=== PATIENT | female | born 1995 | race Caucasian/White ===

== ENCOUNTER 2022-09-26 20:25 | Emergency (ER) | payer SELFPAY ==
[2022-09-26 20:27] VITALS: BP 114/79; PULSE 80; RESP 18; TEMP 37.1; O2SAT 100; BMI 27.3
--- NOTE | 2022-09-26 21:12 | CT_ITS ---
PROCEDURE INFORMATION: Exam: CTA Right Upper Extremity With Contrast Exam date and time: 09/26/2022 10:40 PM Age: 26 years old Clinical indication: Pain; Upper arm; Right; Additional info: Pain, weakness, artery problem TECHNIQUE: Imaging protocol: Computed tomographic angiography of the right upper extremity with contrast, including non-contrast images if performed. 3D rendering (Not supervised by radiologist): MIP and/or 3D reconstructed images were created by the technologist. Radiation optimization: All CT scans at this facility use at least one of these dose optimization techniques: automated exposure control; mA and/or kV adjustment per patient size (includes targeted exams where dose is matched to clinical indication); or iterative reconstruction. Contrast material: ISOVUE; Contrast volume: 70 ml; Contrast route: INTRAVENOUS (IV); REPORTING DATA: Count of CT and Cardiac NM exams in prior 12 months: This patient has received 0 known CTs and 0 known cardiac nuclear medicine studies in the 12 months prior to the current study. COMPARISON: No relevant prior studies available. FINDINGS: Right subclavian artery: Not imaged. Axillary artery: No acute findings. No occlusion or significant stenosis. Brachial artery: No acute findings. No occlusion or significant stenosis. Radial artery: No acute findings. No occlusion or significant stenosis. Ulnar artery: No acute findings. No occlusion or significant stenosis. Bones/joints: Grossly unremarkable. Soft tissues: Unremarkable. IMPRESSION: Subclavian artery not imaged. Otherwise, visualized upper extremity arteries grossly unremarkable.
--- NOTE | 2022-09-26 21:12 | CT_ITS ---
PROCEDURE INFORMATION: Exam: CTA Chest With Contrast Exam date and time: 09/26/2022 10:47 PM Age: 26 years old Clinical indication: Pain; Chest pressure; Additional info: Rue pain, numbness, artery problem TECHNIQUE: Imaging protocol: Computed tomographic angiography of the chest with contrast. Exam focused on the arteries. 3D rendering (Not supervised by radiologist): MIP and/or 3D reconstructed images were created by the technologist. Total images: 318 Radiation optimization: All CT scans at this facility use at least one of these dose optimization techniques: automated exposure control; mA and/or kV adjustment per patient size (includes targeted exams where dose is matched to clinical indication); or iterative reconstruction. Contrast material: ISOVUE; Contrast volume: 70 ml; Contrast route: INTRAVENOUS (IV); REPORTING DATA: Count of CT and Cardiac NM exams in prior 12 months: This patient has received 0 known CTs and 0 known cardiac nuclear medicine studies in the 12 months prior to the current study. COMPARISON: CT ANGIO UE RT 09/26/2022 10:40 PM FINDINGS: Pulmonary arteries: Enlarged main pulmonary artery. Adequate contrast opacification of the pulmonary arteries. No acute pulmonary emboli. Great vessels off aortic arch: Great vessels enhance appropriately. Aorta: Cardiac pulsation artifact obscuring the aortic root and ascending aorta. No aneurysm or dissection. Thyroid: Mildly enlarged thyroid gland without discrete nodule or mass. Lungs: Trachea and main bronchi are patent. Bilateral dependent and bibasilar subsegmental atelectasis. No concerning airspace consolidation or pulmonary mass. No concerning lung nodules. Pleural spaces: Trace right pleural effusion. Heart: Normal heart size. No pericardial effusion. Mild limitations imposed by respiratory motion and cardiac pulsation artifact, particularly at the left lung base. Coronary arteries: No significant coronary artery calcification. Lymph nodes: No pathologically enlarged mediastinal or hilar lymph nodes. Intraperitoneal space: No acute process in the upper abdomen. Bones/joints: No acute osseous abnormality or concerning bone lesions. Soft tissues: Unremarkable. IMPRESSION: 1. No acute pulmonary emboli. 2. No aortic aneurysm or dissection. 3. Trace right pleural effusion. 4. Mild dependent and bibasilar subsegmental atelectasis
--- NOTE | 2022-09-26 21:13 | XR_ITS ---
FINAL REPORT CLINICAL HISTORY: RUE pain and weakness FINDINGS: SINGLE-VIEW CHEST The heart size is normal. The mediastinum is normal. There is mild atelectasis or scar in the left lung base. There is no pneumothorax. IMPRESSION: Left lung base atelectasis or scar. Reviewed, Interpreted and Dictated by Andrez Feliz III, MD Transcribed by Jaqueline Mcgovern Authenticated and [facility]
--- NOTE | 2022-09-26 21:15 | [facility].EDGENADL ---
Discharge Plan Disposition Patient Disposition: Home, Self-Care Chief Complaint: PAIN Referrals Follow up/Referrals: Provider,David, [Primary Care Provider] - See instructions Saul Friedman MD [Staff Physician] - See instructions Jack Willard PT [Physical Therapist] - See instructions Clinical Impressions Clinical Impression: Enlarged pulmonary artery Acute shoulder pain Qualifiers: Laterality: right Qualified Code(s): M25.511 - Pain in right shoulder Discharge ED Provider: Kenneth Auguste General Adult HPI General Chief complaint: PAIN Stated complaint: RT shoulder pain Time Seen by Provider: 09/26/22 20:30 History of Present Illness HPI narrative: Is a 26-year-old female with no relevant medical history presenting with right upper extremity pain. Patient states that she started having right upper extremity pain 2 weeks prior to arrival. Was worked up at [place] and was told I have an artery problem from my heart to my right arm. Was not started on any blood thinners. Was started on steroid, finish steroid 2 days prior to arrival. Since that time, pain has been crescendo. Patient states she does not have weakness, but range of motion is significantly limited secondary to pain. Denies numbness, tingling, weakness, trauma, chest pain or shortness of breath, nausea or vomiting, right-sided facial right-sided lower extremity deficits. Related Data Allergies Allergy/AdvReac Type Severity Reaction Status Date / Time No Known Allergies Allergy Verified 09/26/22 21:38 [facility] Disclaimer: The information contained in this section may have been updated after the patient was seen, as this information can be updated by other users. Social History Smoking Status: Unknown if ever smoked alcohol intake: never current occupational status: employed Travel in the last 8 weeks: None ROS Obtained: Yes All systems reviewed & no additional complaints except as documented Physical Exam General General appearance: alert, in no apparent distress and other ( ) Head Head exam: atraumatic and normocephalic Eye Eye exam: Present normal appearance, PERRL and EOMI ENT ENT exam: Present mucous membranes moist Neck Neck exam: Present normal inspection, full ROM and trachea midline Respiratory Respiratory exam: Absent respiratory distress, wheezes, stridor, accessory muscle use or prolonged expiratory phase Cardiovascular Cardiovascular exam: Present regular rate and normal rhythm Abdominal Exam Abdominal exam: Present soft; Absent distention, tenderness, guarding, rebound, rigidity or normal bowel sounds Extremities Exam Extremities exam: Present tenderness and other (No outward signs of abnormality. Neurovascularly intact); Absent full ROM (Secondary to pain) or edema Neurological Exam Neurological exam: Present alert, oriented X3, CN II-XII intact and normal gait; Absent motor sensory deficit Skin Skin exam: Present warm and dry; Absent diaphoresis or erythema Medical Decision Making Medical Records Medical records reviewed: Yes I reviewed the patient's medical records. Barrett Inquiry Pt receiving controlled substance: No Barrett was queried for this patient: No Vital Signs: 09/26/22 20:27 09/26/22 21:30 09/26/22 23:00 Temperature 98.8 F Temperature Source Oral Pulse Rate 67 71 Pulse Rate [Left] 80 Respiratory Rate 18 20 Blood Pressure 97/52 L Blood Pressure [Right Arm] 114/79 Blood Pressure Mean 77 Blood Pressure Mean [Right Arm] 90 02 Sat by Pulse Oximetry 100 98 100 Oxygen Delivery Method Room Air Room Air Lab Data Lab results reviewed: Yes I reviewed the patient's lab results. Lab Results 09/26/22 21:50: WBC 10.5, RBC 4.38, Hgb 13.4, Hct 41.4, MCV 94.4, MCH 30.7, MCHC 32.5, RDW 12.2, Plt Count 286, MPV 7.7, Neut % (Auto) 72.5, Lymph % (Auto) 19.9, Polk % (Auto) 4.3, Eos % (Auto) 3.0, Baso % (Auto) 0.3, Neut # (Auto) 7.6, Lymph # (Auto) 2.1, Polk # (Auto)
[2022-09-26 21:30] VITALS: BP 97/52; PULSE 67; O2SAT 98
--- NOTE | 2022-09-26 21:30 | ECG_ITS ---
APPROVED REPORT Exam: Resting ECG HR:68 bpm ECG Measurements Heart Rate 68 AXES PA 193 P 61 QRSd 98 QRS 74 QT 406 T 71 QTc 424 Conclusion SINUS RHYTHM POSSIBLE LEFT ATRIAL ENLARGEMENT [-0.1mV P-WAVE IN V1/V2] POSSIBLE RIGHT VENTRICULAR CONDUCTION DELAY [RSR (QR) IN V1/V2] BORDERLINE ECG UNCONFIRMED REPORT Electronically signed by : Asael Navarro MD 09/28/2022 20:53:21
[2022-09-26 22:00] LABS: Basophils % 0.3 % (0.1-2.0); Eosinophils # 0.3 K/mm3 (0.0-0.4); Hematocrit 41.4 % (37.0-47.0); Hemoglobin 13.4 g/dL (12.2-16.2); Lymphocytes # 2.1 K/mm3 (0.7-4.5); Lymphocytes % 19.9 % (10-50); Mean Corpuscular HGB Conc 32.5 g/dL (31.8-35.4); Mean Corpuscular Hemoglobin 30.7 pg (27.0-31.2); Mean Corpuscular Volume 94.4 fl (81-99); Mean Platelet Volume 7.7 fl (7.4-10.4); Monocytes # 0.5 K/mm3 (0.1-1.0); Monocytes % 4.3 % (1.7-9.3); Neutrophils # 7.6 K/mm3 (1.8-7.8); Neutrophils % 72.5 % (37.0-80.0); Platelet Count 286 K/mm3 (142-424); Red Blood Count 4.38 M/mm3 (4.20-5.40); Red Cell Distribution Width 12.2 % (11.5-17.5); White Blood Count 10.5 K/mm3 (4.8-10.8)
[2022-09-26 22:05] LABS: Alanine Aminotransferase 30 U/L (12-78); Albumin Level 3.8 g/dl (3.5-5.0); Albumin/Globulin Ratio 1.3 (1.1-1.8); Alkaline Phosphatase 137 U/L (38-126); Anion Gap 11.7 mEq/L (5-15); Aspartate Amino Transferase 26 U/L (14-36); Bilirubin,Total 0.3 mg/dl (0.2-1.3); Blood Urea Nitrogen 14 mg/dl (7-17); Calcium 8.5 mg/dl (8.4-10.2); Carbon Dioxide 24 mmol/L (22.0-30.0); Chloride 108 mmol/L (98-107); Creatinine Clearance Estimated 218 mL/min (50-200); Estimated Glomerular Filt Rate 148 ml/min (>60); GFR (African American) 179 ML/MIN (>60); Glucose 90 mg/dl (74-100); Potassium 3.7 mmoL/L (3.5-5.1); Sodium 140 mmol/L (136-145); Total Protein,Serum 6.8 g/dl (6.3-8.2)
[2022-09-26 22:11] LABS: INR 0.92 (0.9-1.1)
[2022-09-26 22:21] LABS: Troponin I < 0.01 ng/ml (0.00-0.034)
[2022-09-26 22:22] LABS: HCG,Quantitative < 2 mIU/ml (0-5.42)
[2022-09-26 22:25] LABS: D-Dimer 1.39 ug/mL (0.0-0.5)
[2022-09-26 23:00] VITALS: PULSE 71; RESP 20; O2SAT 100
[2022-09-27 01:18] VITALS: BP 118/75; PULSE 72; RESP 20; TEMP 37.1; O2SAT 100
== END 2022-09-27 01:48 | disposition home or self-care (01) ==
PROVIDERS: Emergency Provider Emergency Medicine
DX: I28.9 Disease of pulmonary vessels, unspecified (principal); M25.511 Pain in right shoulder
CPT/HCPCS: 71045; 71275; 73206; 80053; 84484; 84702; 85025; 85378; 85610; 85730; 93005; 96361; 96374; 96375; 99285; J0131; Q9967